=== PATIENT | male | born 1980 | race American Indian/Alaskan Native ===

== ENCOUNTER 2016-05-19 07:31 | Emergency (ER) | payer SELFPAY ==
[2016-05-19] MEDS ORDERED: NACL 0.9% 1000 ML 1,000 ML IV ONE (08:05)
[2016-05-19 08:36] LABS: Basophils % (Auto) 0.7 % (0.0-1.8); Eosinophils % (Auto) 7.6 % (0.0-4.3); Hematocrit 42.6 % (35.5-45.6); Hemoglobin 13.8 gm/dl (11.8-15.2); Mean Corpuscular HGB Conc 32 % (32-34); Mean Corpuscular Hemoglobin 30 pg (28-32); Mean Corpuscular Volume 93 fl (84-94); Platelet Count 432 K/mm3 (140-440); Red Cell Distribution Width 14.5 % (13.2-15.2); White Blood Count 5.5 K/mm3 (4.5-11.0)
[2016-05-19 08:45] LABS: INR 0.94 (0.87-1.13)
[2016-05-19 08:46] LABS: Partial Thromboplastin Time 30.3 Sec. (24.2-36.6)
[2016-05-19 08:48] LABS: Alanine Aminotransferase 14 units/L (7-56); Albumin 4.3 g/dL (3.9-5); Albumin/Globulin Ratio 1.3 %; Alkaline Phosphatase 74 units/L (35-129); Anion Gap 17 mmol/L; BUN/Creatinine Ratio 8.18; Bilirubin,Total 0.7 mg/dL (0.1-1.2); Blood Urea Nitrogen 9 mg/dL (9-20); Calcium 9.4 mg/dL (8.4-10.2); Carbon Dioxide 28 mmol/L (22-30); Chloride 96.5 mmol/L (98-107); Glucose 142 mg/dL (75-100); Lipase 46 units/L (13-60); Potassium 4.2 mmol/L (3.6-5.0); Sodium 137 mmol/L (137-145); Total Protein 7.6 g/dL (6.3-8.2)
[2016-05-19 11:58] VITALS: BP 119/64
--- NOTE | 2016-05-19 12:19 | Emergency Department Report ---
HPI - General Chief Complaint: GI Bleed Time Seen by Provider: 05/19/16 12:08 - HPI HPI: Chief complaint: Rectal bleeding HPI: Patient complains of intermittent rectal bleeding for several months but worse over the last month. Patient states it hurts when he has a bowel movement he has been taking pinworm [id number] treatment and eating lots of fruits. Patient states she had some stringy bloody discharge as well as some dark green discharge. Patient denies any anal intercourse. Patient states he's been taking that his intermittent bleeding was from hemorrhoids. No lightheadedness, fever, nausea or diarrhea. No previous screening colonoscopy. Mode of arrival: private car Source: Patient Began: See above Duration: See above Context: See above Quality: Sore and spasms that times Severity: 8 out of 10 Improved with: Nothing Worsened with: Defecation Associated signs and symptoms: See above ED Past Medical Hx - Past Medical History Previous Medical History?: No - Surgical History Past Surgical History?: No - Social History Smoking Status: Current Every Day Smoker Substance Use Type: Alcohol, Marijuana - Medications Home Medications: Home Medications Medication Instructions Recorded Confirmed Last Taken Type Ciprofloxacin HCl [Ciprofloxacin 500 mg PO Q12H #20 tab 05/19/16 Unknown Rx TAB] HYDROcodone/APAP 5-325 [[place] 1 each PO Q6HR PRN #14 tablet 05/19/16 Unknown Rx 5/325] metroNIDAZOLE [Flagyl] 500 mg PO Q8HR #30 tablet 05/19/16 Unknown Rx ED Review of Systems ROS: Stated complaint: BLOOD IN STOOL Other details as noted in HPI ROS Constitutional: No fever ENT: No uri symptoms Cardiovascular: No chest pain Respiratory: No sob or cough GI: See HPI : No dysuria frequency or urgency, Skin: No rash Neuro: No focal weakness or numbness Psych: No depression Leandro/lymph: No edema Physical Exam - Physical Exam Vital Signs: Vital Signs 05/19/16 05/19/16 05/19/16 08:00 11:55 11:57 Temperature 98.6 F 98.6 F Pulse Rate 78 73 Respiratory 16 18 20 Rate Blood Pressure 120/76 Blood Pressure 119/64 [Left] O2 Sat by Pulse 100 100 100 Oximetry Physical Exam: GENERAL: The patient is well-developed well-nourished . HEENT: Normocephalic. Atraumatic. Extraocular motions are intact. Patient has moist mucous membranes. NECK: Supple. No meningitic signs are noted. There is no adenopathy noted. CHEST/LUNGS: Clear to auscultation. There is no respiratory distress noted. HEART/CARDIOVASCULAR: Regular. There is no tachycardia. There is no gallop rub or murmur. ABDOMEN: Abdomen is soft, nontender. Patient has normal bowel sounds. There is no abdominal distention. Rectal exam slightly tender with an external hemorrhoid that is nonthrombosed or bleeding. No stool, pus or blood in the rectal vault . SKIN: There is no rash. There is no edema. There is no diaphoresis. NEURO: The patient is awake, alert, and oriented. The patient is cooperative. The patient has no focal neurologic deficits. The patient has normal speech. MUSCULOSKELETAL: There is no tenderness or deformity. There is no limitation range of motion. There is no evidence of acute injury. ED Course Vital Signs 05/19/16 05/19/16 05/19/16 08:00 11:55 11:57 Temperature 98.6 F 98.6 F Pulse Rate 78 73 Respiratory 16 18 20 Rate Blood Pressure 120/76 Blood Pressure 119/64 [Left] O2 Sat by Pulse 100 100 100 Oximetry - Reevaluation(s) Reevaluation #1: 05/19/16 15:10 Patient given 900 mg of IV clindamycin. ED Medical Decision Making - Lab Data Result diagrams: 05/19/16 08:14 05/19/16 08:14 Laboratory Tests 05/19/16 05/19/16 08:14 08:14 PT 12.5 INR 0.94 APTT 30.3 Lipase 46 - Radiology Data Radiology results: report reviewed (CT shows no abscess but some cellulitis near the coccyx) Critical care attestation.: If time is entered above; I have spent that time in minutes in the direct care of this critically ill patient, excluding procedure time. ED Disposition Clinical Impression: Rectal bleeding Cellulitis Qualifiers: Site of cellulitis: buttock Qualified Code(s): L03.317 - Cellulitis of buttock Disposition: DISCHARGED TO HOME OR SELFCARE Is pt being admited?: No Does the pt Need Aspirin: No Condition: Stable Instructions: Cellulitis (ED), Sitz Bath (GEN), Rectal Bleeding (ED) Prescriptions: Ciprofloxacin HCl [Ciprofloxacin TAB] 500 mg PO Q12H #20 tab HYDROcodone/APAP 5-325 [[place] 5/325] 1 each PO Q6HR PRN #14 tablet PRN Reason: Pain metroNIDAZOLE [Flagyl] 500 mg PO Q8HR #30 tablet Referrals: PRIMARY CARE, [Primary Care Provider] - 3-5 Days [facility] [Provider Group] - 3-5 Days Forms: Accompanied Note
[2016-05-19] MEDS ORDERED: NACL ONE (12:34)
--- NOTE | 2016-05-19 13:31 | Cat Scan Report ---
CT PELVIS WITH CONTRAST INDICATION: Rectal pain and bleeding. Evaluate for abscess. COMPARISON: None similar at this institution. FINDINGS: Pelvis CT performed following IV contrast demonstrates grossly unremarkable bowel. Normal appendix. Few pelvic phleboliths. Unremarkable seminal vesicles and the urinary bladder. Slightly prominent prostate may be correlated for clinically and with PSA. No free fluid or significant adenopathy. Slight left midline subcutaneous stranding/inflammation overlies the lower sacrum and coccyx, axial series 2, images 88-158, amongst others, extending along the gluteal crease to about the anal level/coccygeal tip. Unremarkable bones. CONCLUSION: Gluteal subcutaneous stranding extending to about the anus may be infectious/inflammatory, as described. Please correlate. Thank you for the opportunity to participate in this patient's care.
[2016-05-19] MEDS ORDERED: CLEOCIN 900 MG/50 mL 900 MG/50 ML BAG IV ONE (13:40)
== END 2016-05-19 15:30 | disposition home or self-care (01) ==
LOC: ED 07:31
DX: L03.317 Cellulitis of buttock (principal); K62.5 Hemorrhage of anus and rectum; F12.10 Cannabis abuse, uncomplicated
CPT/HCPCS: 36415; 72193; 80053; 83690; 85025; 85610; 85730; 86850; 86900; 86901; 93005; 93010; 96365; 99284; J7030; Q9967

== ENCOUNTER 2019-04-26 11:27 | Emergency (ER) | payer OTHER ==
[2019-04-26 11:44] VITALS: BP 133/80
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
== END 2019-04-26 12:46 | disposition left against medical advice (07) ==
LOC: ED 11:27
DX: M54.2 Cervicalgia (principal)
CPT/HCPCS: 99282

== ENCOUNTER 2021-11-04 16:23 | Emergency (ER) | payer SELFPAY | END 2021-11-05 08:32 | disposition left against medical advice (07) | LOC: ED 16:23 | DX: K12.2 Cellulitis and abscess of mouth (principal); Z53.21 Procedure and treatment not carried out due to patient leaving prior to being seen by health care provider ==

== ENCOUNTER 2021-11-05 07:16 | Emergency (ER) | payer SELFPAY ==
[2021-11-05 07:35] VITALS: BP 111/79
--- NOTE | 2021-11-05 10:42 | Emergency Department Report ---
ED General Adult HPI - General Chief complaint: Dental/Oral Stated complaint: TOOTHACHE Time Seen by Provider: 11/05/21 10:09 Source: patient Mode of arrival: Ambulatory Limitations: No Limitations - History of Present Illness Initial comments: 40-year-old male with no significant past medical history reports to the ER with a left lower dental pain and swelling since Sunday. Patient reports no concerns with eating and drinking. Patient reports taken [id number]-[id number] medication with no relief. Patient denies any fever. No other acute symptoms reported. Severity scale (0 -10): 7 - Related Data Previous Rx's Medication Instructions Recorded Last Taken Type Ciprofloxacin HCl [Ciprofloxacin 500 mg PO Q12H #20 tab 05/19/16 Unknown Rx TAB] HYDROcodone/APAP 5-325 [[place] 1 each PO Q6HR PRN #14 tablet 05/19/16 Unknown Rx 5/325] metroNIDAZOLE [Flagyl] 500 mg PO Q8HR #30 tablet 05/19/16 Unknown Rx Acetaminophen/Codeine [Tylenol 1 tab PO Q6H PRN 2 Days #8 tab 11/05/21 Unknown Rx /Codeine # 3 tab] Amoxicillin/K Clav Tab [Augmentin 1 tab PO Q12HR 7 Days #14 tab 11/05/21 Unknown Rx 875 mg] Ibuprofen [Motrin] 800 mg PO Q8HR PRN 6 Days #18 11/05/21 Unknown Rx tablet Allergies Allergy/AdvReac Type Severity Reaction Status Date / Time No Known Allergies Allergy Unverified 05/19/16 08:05 ED Review of Systems ROS: Stated complaint: TOOTHACHE Other details as noted in HPI Comment: All other systems reviewed and negative ENT: dental pain ED Past Medical Hx - Past Medical History Previous Medical History?: No - Social History Smoking Status: Current Every Day Smoker Substance Use Type: Alcohol, Marijuana - Medications Home Medications: Home Medications Medication Instructions Recorded Confirmed Last Taken Type Ciprofloxacin HCl [Ciprofloxacin 500 mg PO Q12H #20 tab 05/19/16 Unknown Rx TAB] HYDROcodone/APAP 5-325 [[place] 1 each PO Q6HR PRN #14 tablet 05/19/16 Unknown Rx 5/325] metroNIDAZOLE [Flagyl] 500 mg PO Q8HR #30 tablet 05/19/16 Unknown Rx Acetaminophen/Codeine [Tylenol 1 tab PO Q6H PRN 2 Days #8 tab 11/05/21 Unknown Rx /Codeine # 3 tab] Amoxicillin/K Clav Tab [Augmentin 1 tab PO Q12HR 7 Days #14 tab 11/05/21 Unknown Rx 875 mg] Ibuprofen [Motrin] 800 mg PO Q8HR PRN 6 Days #18 11/05/21 Unknown Rx tablet ED Physical Exam - General Limitations: No Limitations General appearance: alert, in no apparent distress - Head Head exam: Present: atraumatic, normocephalic - Eye Eye exam: Present: normal appearance - ENT ENT exam: Present: mucous membranes moist, other (Left lower dental pain with swelling to left lower last molar. No abscess is noted. Patient does have tooth decay uncertainty.) - Neck Neck exam: Present: normal inspection - Respiratory Respiratory exam: Present: normal lung sounds bilaterally. Absent: respiratory distress - Cardiovascular Cardiovascular Exam: Present: regular rate, normal rhythm. Absent: systolic murmur, diastolic murmur, rubs, gallop - GI/Abdominal GI/Abdominal exam: Present: soft, normal bowel sounds - Rectal Rectal exam: Present: deferred - Extremities Exam Extremities exam: Present: normal inspection - Back Exam Back exam: Present: normal inspection - Neurological Exam Neurological exam: Present: alert, oriented X3 - Psychiatric Psychiatric exam: Present: normal affect, normal mood - Skin Skin exam: Present: warm, dry, intact, normal color. Absent: rash ED Course Vital Signs 11/05/21 11/05/21 07:31 11:02 Temperature 98.5 F 98.5 F Pulse Rate 98 H 98 H Respiratory 18 16 Rate Blood Pressure 111/79 [Right] O2 Sat by Pulse 97 Oximetry ED Medical Decision Making - Medical Decision Making Left lower dental pain with slight swelling. No airway concerns. No dental abscess noted. . Patient to be started on oral antibiotics and given oral pain medicine. Patient reports that he has an upcoming appointment with his dentist sometime next week. Patient informed that if symptoms are to get worse to report back to the ER. Patient agrees with plan of care and verbalized understanding. Vital Signs 11/05/21 11/05/21 07:31 11:02 Temperature 98.5 F 98.5 F Pulse Rate 98 H 98 H Respiratory 18 16 Rate Blood Pressure 111/79 [Right] O2 Sat by Pulse 97 Oximetry Critical care attestation.: If time is entered above; I have spent that time in minutes in the direct care of this critically ill patient, excluding procedure time. ED Disposition Clinical Impression: Pain, dental Disposition: 01 HOME / SELF CARE / HOMELESS Is pt being admited?: No Condition: Stable Instructions: Acute Pain, Adult Prescriptions: Amoxicillin/K Clav Tab [Augmentin 875 mg] 1 tab PO Q12HR 7 Days #14 tab Ibuprofen [Motrin] 800 mg PO Q8HR PRN 6 Days #18 tablet PRN Reason: Pain , Severe (7-10) Acetaminophen/Codeine [Tylenol /Codeine # 3 tab] 1 tab PO Q6H PRN 2 Days #8 tab PRN Reason: Pain , Severe (7-10) Referrals: KAROL EASTMAN MD [Primary Care Provider] - 3-5 Days Time of Disposition: 10:42
== END 2021-11-05 11:06 | disposition home or self-care (01) ==
LOC: ED 07:16
DX: K08.89 Other specified disorders of teeth and supporting structures (principal); F17.200 Nicotine dependence, unspecified, uncomplicated; F12.90 Cannabis use, unspecified, uncomplicated; Z72.89 Other problems related to lifestyle; Z79.899 Other long term (current) drug therapy
CPT/HCPCS: 99282